=== PATIENT | male | born 1970 | race Caucasian/White ===

== ENCOUNTER 2017-01-22 08:18 | Emergency (ER) | payer OTHER, BC ==
[2017-01-22 08:31] VITALS: BP 142/96; PULSE 68; TEMP 98.2; BMI 39.7
[2017-01-22] MEDS ORDERED: diazePAM 5 MG TABLET PO ONE (09:26)
[2017-01-22] MEDS ORDERED: KETOROLAC TROMETHAMINE 60 MG/2 ML VIAL IM ONE (09:26)
--- NOTE | 2017-01-22 09:29 | PDOC ---
History of Present Illness - General Chief Complaint: Back Pain Stated Complaint: BACK PAIN Time Seen by Provider: 01/22/17 08:44 History Source: Patient Exam Limitations: No Limitations - History of Present Illness Initial Comments: 01/22/17 10:51 My chief complaint: Right sided lower back pain after lifting rock at work prior to arrival here History of present illness: Patient is a 46-year-old male [employer] worker with a history of hypertension and hyperlipidemia here today for due to having sudden right-sided lower back pain when lifting heavy [place] at work today causing him to fall down to his knees. Patient reports that it weighed approximately 350 pounds. Patient reports feeling a pain to his right lower back and then felt pain down his right buttock down his leg that lasted 1-2 minutes. Patient denies any leg pain presently any incontinency or any saddle anesthesia or numbness of his leg. Patient reports having herniated disc in the past. Patient reports the pain is worse when getting up from a seated position or standing. Patient did not take anything for pain prior to arrival here. He reports that pain is an 8 with sitting and a 10 when trying to stand sharp in nature. 01/22/17 10:53 01/22/17 19:38 01/22/17 19:42 01/22/17 19:43 Occurred: reports: this morning Severity: reports: severe (right lower back ) Pain Location: reports: back Method of Injury: Yes: other (lifting heavy blue stone rock at work ) Modifying Factors: improves with: immobilization Loss of Consciousness: no loss of consciousness Associated Symptoms (Fall): denies symptoms, muscle spasms (right lower back ) Past History - Past Medical History Allergies/Adverse Reactions: Allergies Allergy/AdvReac Type Severity Reaction Status Date / Time No Known Allergies Allergy Verified 01/22/17 08:32 Home Medications: Ambulatory Orders Atorvastatin Calcium [Lipitor] 20 mg PO DAILY 03/20/12 Valsartan/Hydrochlorothiazide [Diovan Hct 320-25 mg Tablet] 1 combo PO DAILY 06/19 Methylprednisolone [Medrol Dose Darrel] 4 mg PO ASDIR #21 tablet 01/22/17 Naproxen [Naprosyn -] 500 mg PO BID PRN #14 tablet 01/22/17 Oxycodone HCl/Acetaminophen [Percocet 5-325 mg Tablet] 1 - 2 tab PO Q6H PRN #20 tab MDD 8 01/22/17 HTN: Yes Hypercholesterolemia: Yes - Immunization History Td Vaccination: (4 YRS AGO) - Psycho/Social/Smoking Cessation Hx Anxiety: No Suicidal Ideation: No Smoking Status: No Smoking History: Never smoked Number of Cigarettes Smoked Daily: 0 Hx Alcohol Use: Yes ("RARE") Drug/Substance Use Hx: No Substance Use Type: None Review of Systems - Review of Systems Able to Perform ROS?: Yes Constitutional: No: Symptoms Reported HEENTM: No: Symptoms Reported Respiratory: No: Symptoms reported Cardiac (ROS): No: Symptoms Reported Musculoskeletal: Yes: Back Pain (right sided lower back with radiation down rt. leg that lasted a few minutes only ) Integumentary: No: Symptoms Reported Neurological: No: Symptoms reported *Physical Exam - Vital Signs Last Vital Signs Temp Pulse Resp BP Pulse Ox 98.2 F 68 18 142/96 95 01/22/17 08:28 01/22/17 08:28 01/22/17 08:28 01/22/17 08:28 01/22/17 08:28 - Physical Exam General Appearance: Yes: Appropriately Dressed Respiratory/Chest: positive: Lungs Clear, Normal Breath Sounds. negative: Chest Tender, Respiratory Distress Cardiovascular: positive: Regular Rhythm, Regular Rate, S1, S2 Musculoskeletal: positive: Normal Inspection, Decreased Range of Motion (at waist bending f). negative: CVA Tenderness, CVA Tenderness (R), CVA Tenderness (L), Vertebral Tenderness Extremity: positive: Normal Capillary Refill, Normal Inspection, Normal Range of Motion Integumentary: positive: Normal Color Neurologic: positive: Alert, Normal Response, Motor Strength 5/5 (left, right leg motor/strength 3/4), Respond to painful stimul (b/l legs ), Other (unable to lie down to do SLR b/lo ). negative: Responsive, Numbness, Sensory Deficit ( legs ) Deep Tendon Reflexes: Knee (L): 3+, Knee (R): 3+ Medical Decision Making - Medical Decision Making 01/22/17 10:53 Patient is a 46-year-old male [employer] worker with a history of hypertension and hyperlipidemia here today for due to having sudden right-sided lower back pain when lifting heavy [place] at work today causing him to fall to his knees. Patient reports that it weighed approximately 350 pounds. Patient reports feeling a pain to his right lower back and then felt pain down his right buttock down his leg that lasted 1-2 minutes. Patient denies any leg pain presently any incontinency or any saddle anesthesia or numbness of his leg. Patient reports having herniated disc in the past. Patient reports the pain is worse when getting up from a seated position or standing. Patient did not take anything for pain prior to arrival here. he reports the pain is an 8 with sitting and 10 when trying to stand up sharp in nature. 01/22/17 10:54 RT. SIDED LOWER BACK PAIN WITH RADICULOPATHY PLAN: VALIUM 5 MG PO NOW TORADOL 60 MG IM NOW XRAY LUMBAR SACRAL SPINE on its degenerative discogenic disease at T12-L1 unchanged from prior examination. Loss of disc space height L5-S1. No compression deformities, spondylolisthesis is seen. Per Dr. Parker pain continues rt. lower back percocet 5mg/325mg po now 01/22/17 11:40 he continues to feel intense pain of right lower back and also reports feeling pain radiating to his right anterior thigh Will give another Percocet 5 mg/325 mg by mouth now prednisone 40 mg po now will discharge on medrol dose pack follow up with orthopedist as soon as possible in [place] where you live 01/22/17 12:47 feeling better will discharge to home Confidential Drug Utilization Report Search Terms: jordan [email or web address], 1970 Search Date: 01/22/2017 12:46:45 PM The Drug Utilization Report below displays all of the controlled substance prescriptions, if any, that your patient has filled in the last twelve months. The information displayed on this report is compiled from pharmacy submissions to the Department, and accurately reflects the information as submitted by the pharmacies. This report was requested by: Graciela Snell | Reference #: [id number] pt. feeling better will discharge on with percocet 5mg/325mg 1-2 tabs every 6 hrs prn severe pain 20 tabs naprosyn 500 mg bid prn moderate pain # 14 tabs medrol dose pack 01/22/17 19:43 01/22/17 19:44 01/22/17 19:44 *DC/Admit/Observation/Transfer Diagnosis at time of Disposition: Lumbar back pain with radiculopathy affecting right lower extremity - Discharge Dispostion Disposition: HOME Condition at time of disposition: Stable - Prescriptions Prescriptions: Methylprednisolone [Medrol Dose Darrel] 4 mg PO ASDIR #21 tablet Naproxen [Naprosyn -] 500 mg PO BID PRN #14 tablet PRN Reason: Pain Level 1-5 Oxycodone HCl/Acetaminophen [Percocet 5-325 mg Tablet] 1 - 2 tab PO Q6H PRN #20 tab MDD 8 PRN Reason: Pain Level 6-10 - Patient Instructions Additional Instructions: Follow-up with orthopedist near where you live as soon as possible for further evaluation Avoid any lifting or exercise Return to emergency room if any numbness of leg or private area or worsening pain Patient voiced understanding of discharge instructions and all questions were answered
[2017-01-22] MEDS ORDERED: diazePAM 5 MG TABLET ONE (09:30)
[2017-01-22] MEDS ORDERED: KETOROLAC TROMETHAMINE 60 MG/2 ML VIAL ONE (09:30)
[2017-01-22] MEDS ORDERED: OXYCODONE/APAP 5/325MG COMBO TABLET ONE ×2 (10:43→11:38)
[2017-01-22] MEDS ORDERED: OXYCODONE/APAP 5/325MG COMBO TABLET PO ONE ×2 (10:50→11:35)
[2017-01-22] MEDS ORDERED: predniSONE 20 MG TABLET (UD) PO ONE (11:35)
[2017-01-22] MEDS ORDERED: predniSONE 20 MG TABLET (UD) ONE (11:38)
== END 2017-01-22 12:54 | disposition home or self-care (01) ==
LOC: JERFT 08:18
PROC: 3E0233Z Introduction of Anti-inflammatory into Muscle, Percutaneous Approach (ICD-10-PCS; principal; 2017-01-22)
DX: M54.16 Radiculopathy, lumbar region (principal); X50.0XXA Overexertion from strenuous movement or load, initial encounter; X50.9XXA Other and unspecified overexertion or strenuous movements or postures, initial encounter; Y93.89 Activity, other specified; Y92.69 Other specified industrial and construction area as the place of occurrence of the external cause; Y99.0 Civilian activity done for income or pay
CPT/HCPCS: 72100-TC; 99281-25

== ENCOUNTER 2018-12-20 09:21 | Emergency (ER) | payer OTHER, BC | END 2018-12-20 10:52 | disposition home or self-care (01) | LOC: JERFT 09:21 ==